=== PATIENT | female | born 1985 | race Caucasian/White ===

== ENCOUNTER 2024-08-05 06:15 | Day surgery (SDC) | payer MEDICAID ==
[~2024-08-05 06:15] MED LIST: Sodium Chloride 0.9% 10 ML Syringe FLUSH PRN; Sodium Chloride 0.9% 10 ML Syringe FLUSH SCH
[2024-08-05] MEDS: Lactated Ringers 1,000 ML IV SCH (06:45)
[2024-08-05 06:50] LABS: BASOPHILS PERCENT AUTO 0.7 % (0.0-1.0); EOSINOPHILS ABSOLUTE AUTO 0.1 K/mm3 (0.0-0.4); EOSINOPHILS PERCENT AUTO 1.9 % (0.0-6.0); HEMATOCRIT 35.8 % (37.0-47.0); HEMOGLOBIN 11.5 gm/dl (12.0-16.0); IMMATURE GRAN ABSOLUTE AUTO 0.02 K/mm3 (0.00-0.05); IMMATURE GRAN PERCENT AUTO 0.3 % (0.0-0.4); LYMPHOCYTES ABSOLUTE AUTO 1.4 K/mm3 (1.0-4.8); LYMPHOCYTES PERCENT AUTO 23.6 % (24.0-44.0); MEAN CORPUSCULAR HEMOGLOBIN 28.8 pg (28.0-32.0); MEAN CORPUSCULAR HGB CONC 32.1 g/dl (32.0-36.0); MEAN CORPUSCULAR VOLUME 89.5 fl (83.0-99.0); MEAN PLATELET VOLUME 9.8 fl (9.4-12.3); MONOCYTES ABSOLUTE AUTO 0.4 K/mm3 (0.0-0.8); MONOCYTES PERCENT AUTO 7.6 % (0.0-8.0); NEUTROPHILS ABSOLUTE AUTO 3.8 K/mm3 (1.8-7.7); NEUTROPHILS PERCENT AUTO 65.9 % (41.0-71.0); PLATELET COUNT,PLT 337 K/mm3 (150-400); WHITE BLOOD CELL COUNT,WBC 5.81 K/mm3 (3.9-11.3)
[2024-08-05] MEDS ORDERED: dexmedeTOMIDine HCl 200 MCG/2 ML SDV ONE (06:53)
[2024-08-05] MEDS ORDERED: Propofol 200 MG/20 ML SDV ONE ×2 (06:53→10:17)
[2024-08-05] MEDS ORDERED: Rocuronium 50 MG/5 ML Vial ONE ×2 (06:53→08:34)
[2024-08-05] MEDS ORDERED: Lactated Ringers 1,000 ML ONE ×2 (06:53→10:04)
[2024-08-05] MEDS ORDERED: Dexamethasone 4 MG/ML 5 ML MDV ONE (06:53)
[2024-08-05] MEDS ORDERED: Ondansetron 4 MG/2 ML SDV ONE (06:53)
[2024-08-05] MEDS ORDERED: Ketorolac 30 MG/ML SDV ONE (06:54)
[2024-08-05] MEDS ORDERED: Lidocaine 1% 4 ML ONE (06:54)
[2024-08-05] MEDS ORDERED: Midazolam 1 MG/ML 2 ML SDV ONE (06:54)
[2024-08-05] MEDS ORDERED: fentaNYL 250 MCG/5 ML SDV ONE (06:54)
[2024-08-05 06:57] LABS: ANION GAP 15.2 (5-15); BLOOD UREA NITROGEN,BUN 5 mg/dL (7-18); BUN/CREATININE RATIO 7.1 (14-18); CALCIUM 8.4 mg/dL (8.5-10.1); CARBON DIOXIDE,CO2 23 mEq/L (21-32); CHLORIDE,CL 105 mEq/L (98-107); CREATININE 0.7 mg/dL (0.55-1.02); ESTIMATED GFR 111 mL/min (>60); GLUCOSE RANDOM 108 mg/dL (70-99); POTASSIUM,K 3.2 mEq/L (3.5-5.1); SODIUM,NA 140 mEq/L (136-145)
[2024-08-05] MEDS ORDERED: ceFAZolin 2 GM Vial ONE (07:06)
[2024-08-05] MEDS ORDERED: diphenhydrAMINE 50 MG/ML SDV ONE (07:36)
[2024-08-05] MEDS ORDERED: HYDROmorphone 0.5 MG/0.5 ML Syringe ONE ×2 (07:41→08:09)
[2024-08-05] MEDS: Bupivacaine 0.25% 10 ML SDV ONE (07:50)
[2024-08-05] MEDS: Bupivacaine 0.5% 30 ML SDV ONE (07:50)
[2024-08-05] MEDS: EPINEPHrine 1 MG/ML SDV ONE (07:50)
[2024-08-05] MEDS ORDERED: Sugammadex Sodium 200 MG/2 ML VIAL IV ONE (10:04)
[2024-08-05] MEDS: Acetaminophen/oxyCODONE 325-5 MG Tab PO PRN (12:05)
[2024-08-05 13:23] VITALS: BP 129/71; PULSE 72
== END 2024-08-05 13:15 | disposition home or self-care (01) ==
LOC: JD.SDS 06:15
PROVIDERS: ATTEND Obstetrics & Gynecology
DX: N80.03 Adenomyosis of the uterus (principal); K66.0 Peritoneal adhesions (postprocedural) (postinfection); E03.9 Hypothyroidism, unspecified; F17.210 Nicotine dependence, cigarettes, uncomplicated; Z88.1 Allergy status to other antibiotic agents; Z88.8 Allergy status to other drugs, medicaments and biological substances; Z79.890 Hormone replacement therapy; Z79.899 Other long term (current) drug therapy
CPT/HCPCS: 36415; 58552; 80048; 81025; 85025; 86850; 86900; 86901; A9270; J0171; J0665; J0690; J1100; J1171; J1200; J1885; J2250; J2405; J2704; J3010; J3490; J7120; 00944